=== PATIENT | male | born 1955 | race Caucasian/White ===

== ENCOUNTER 2016-12-24 09:36 | Emergency (ER) | payer BC ==
[~2016-12-24] VITALS: Ht 180.3 cm; Wt 102.3 kg
[2016-12-24 09:40] VITALS: TEMP 98.6
[2016-12-24] MEDS ORDERED: CORDARONE200 MG/TAB PO (09:56)
[2016-12-24] MEDS ORDERED: ELIQUIS 5MG PO (09:56)
[2016-12-24] MEDS ORDERED: FLOMAX 0.40.4 MG/CAP PO (09:57)
[2016-12-24] MEDS ORDERED: CIALIS20 MG PO (09:57)
[2016-12-24 10:39] LABS: PH 6 (5-8); SQUAMOUS EPITHELIAL None Seen /hpf; URINE APPEARANCE Clear; URINE BACTERIA None Seen /hpf; URINE BILIRUBIN Negative (NEGATIVE); URINE BLOOD 3+ (NEGATIVE); URINE COLOR Straw; URINE GLUCOSE Negative (NEGATIVE); URINE KETONE Negative (NEGATIVE); URINE RBC 0-2 /hpf; URINE UROBILINOGEN Negative (NEGATIVE); URINE WBC 0-2 /hpf
[2016-12-24 11:32] VITALS: BP 125/84; PULSE 98
== END 2016-12-24 11:32 | disposition home or self-care (01) ==
LOC: COL.ER 09:36
PROVIDERS: Nurse Practitioner
DX: N40.1 Benign prostatic hyperplasia with lower urinary tract symptoms (principal); R33.8 Other retention of urine